=== PATIENT | male | born 1940 | race Caucasian/White ===

== ENCOUNTER 2021-12-02 15:14 | Emergency (ER) | payer MEDICARE, BC ==
[~2021-12-02] VITALS: Ht 177.8 cm; Wt 84.8 kg
--- NOTE | 2021-12-02 15:39 | NUR ---
DR KATHLEEN AT BEDSIDE FOR EVALUATION.
[2021-12-02] MEDS ORDERED: MORPHINE SULFATE 4 MG/1 ML DISP.SYRIN ONE (15:43)
[2021-12-02] MEDS ORDERED: ONDANSETRON 4 MG/2 ML VIAL ONE ×2 (15:44)
[2021-12-02] MEDS ORDERED: ONDANSETRON 4 MG/2 ML VIAL IV ONE (15:45)
[2021-12-02] MEDS ORDERED: MORPHINE SULFATE 2 MG/1 ML DISP.SYRIN IV ONE (15:45)
[2021-12-02] MEDS ORDERED: CORDURA (15:52)
[2021-12-02] MEDS ORDERED: AMILORIDE (15:52)
[2021-12-02] MEDS ORDERED: AMLODIPINE (15:52)
[2021-12-02] MEDS ORDERED: LOSARTAN (15:52)
[2021-12-02 15:58] LABS: HEMATOCRIT 42.7 % (36.7-47.1); MEAN CORPUSCULAR HEMOGLOBIN 32.2 uug (23.8-33.4); MEAN CORPUSCULAR VOLUME 94.2 fL (73.0-96.2); PLATELET COUNT (AUTO) 208 K/uL (152-348)
[2021-12-02 16:02] LABS: POTASSIUM 4.1 mmol/L (3.5-5.1)
[2021-12-02 16:14] LABS: BILIRUBIN,DIRECT 0.2 mg/dL (0.0-0.2); TOTAL PROTEIN, SERUM 6.3 g/dL (6.4-8.2)
[2021-12-02] MEDS ORDERED: HYDROMORPHONE 1 MG/1 ML DISP.SYRIN ONE ×3 (16:36→22:54)
[2021-12-02] MEDS ORDERED: HYDROMORPHONE 1 MG/1 ML DISP.SYRIN IV ONE ×3 (16:45→23:00)
--- NOTE | 2021-12-02 16:50 | NUR ---
Pt states he doesn't feel his hip pain unless moving, using urinal for urination. VSS.
--- NOTE | 2021-12-02 17:55 | NUR ---
Per pt and request, they trying to arrange transfer with help of their MD.
--- NOTE | 2021-12-02 18:26 | NUR ---
Dr Anderson and annabella speaking to Pt regarding plan of care.
--- NOTE | 2021-12-02 19:00 | NUR ---
RECEIVED REPORT FROM IJEOMA INIGUEZ. PT NOTED TO BE IN BED EYES CLOSED, BREATHING EVEN AND UNLABORED.
--- NOTE | 2021-12-02 19:08 | NUR ---
PT PRIMARY MD FROM [facility] CALLED AT AND MADE AWARE OF PT'S REQUEST FOR TRANSFER. WAITING HOUSEKEEPER CAREGIVER BACK FROM HOUSEKEEPER CAREGIVER DOCTOR (DR. TRAMMELL).
--- NOTE | 2021-12-02 19:30 | NUR ---
PT'S PROVIDED US WITH ACCEPTING DOCTOR (DR. MILLER) AND SURG (DR. JESSICA HAND) FOR [facility].
--- NOTE | 2021-12-02 19:45 | NUR ---
SPOKE WITH MARTIN FROM [facility] FOR REQUEST OF TRANSFER, PT'S CLINICAL SUMMARY AND FACE SHEET FAXED OVER TO [phone].
--- NOTE | 2021-12-02 22:17 | NUR ---
CALLED [facility] FOR TRANSPORTATION SPOKE WITH ANALIA ETA OF 35-45 MINUTE.
--- NOTE | 2021-12-02 22:37 | NUR ---
REPORT TGIVEN TO IJEOMA RODRIGUEZ.
--- NOTE | 2021-12-02 22:48 | NUR ---
[facility] [address] AT BEDSIDE.
--- NOTE | 2021-12-02 23:12 | NUR ---
Patient Tranfers to outside Facility Physician: JESSICA HAND Location:[facility], ROOM 1506. PT LEFT IN STABLE CONDITION, DENIED ANY PAIN/DISCOMFORT PRIOR TO TRANSFER. ALL BELONGINGS WITH PT.
--- NOTE | 2021-12-02 23:18 | NUR ---
YAMILET () MADE AWARE THAT PT HAS BEEN PICKED UP AND TRANSFERED.
== END 2021-12-02 23:22 | disposition short-term general hospital (02) ==
LOC: ER 15:48
DX: S72.141A Displaced intertrochanteric fracture of right femur, initial encounter for closed fracture (principal); W01.0XXA Fall on same level from slipping, tripping and stumbling without subsequent striking against object, initial encounter; Y93.89 Activity, other specified; Y92.019 Unspecified place in single-family (private) house as the place of occurrence of the external cause; Z82.49 Family history of ischemic heart disease and other diseases of the circulatory system; Z20.822 Contact with and (suspected) exposure to COVID-19; R00.1 Bradycardia, unspecified; N40.0 Benign prostatic hyperplasia without lower urinary tract symptoms; E78.00 Pure hypercholesterolemia, unspecified; H40.9 Unspecified glaucoma; Z79.899 Other long term (current) drug therapy; I70.0 Atherosclerosis of aorta; R03.0 Elevated blood-pressure reading, without diagnosis of hypertension
CPT/HCPCS: 36415; 71045; 73502; 73551; 80048; 80076; 85025; 85730; 87426; 93005; 96374; 96375; 96376; 99285; J1170 ×3; J2270; J2405 ×2; A4663